=== PATIENT | male | born 1960 | race African-American/Black ===

== ENCOUNTER 2018-02-22 09:03 | Day surgery (SDC) | payer OTHER ==
[~2018-02-22 09:03] MED LIST: BUPIVACAINE MPF 0.5% 30 ML VIAL.; HYDROmorphone 2 MG/ML VIAL IV; LIDOCAINE 1% PF 2 ML VIAL. ID; LIDOCAINE 1% PF 30 ML VIAL.; MORPHINE SULFATE 2 MG/ML DISP.SYRIN. IV; ONDANSETRON PF 4 MG/2 ML VIAL. IV; PROCHLORPERAZINE 10 MG/2 ML VIAL. IV; PROPOFOL 20 ML IV; ROCURONIUM 50 MG/5 ML VIAL.; ceFAZolin 2GM PREMIX 2 GM/50 ML BAG IV; fentaNYL PF VIAL 100 MCG/2 ML VIAL; fentaNYL PF VIAL 100 MCG/2 ML VIAL IV
[2018-02-22 09:58] LABS: POC GLUCOSE 89 mg/dL (70-99)
[2018-02-22] MEDS: IV RINGERS,LACTATED 1000ML 1,000 ML IV (09:58)
[2018-02-22] MEDS ORDERED: MIDAZOLAM HCL/PF 2 MG/2 ML VIAL. (10:06)
[2018-02-22] MEDS ORDERED: ROPIVacaine 0.5% PF 30 ML VIAL. (10:07)
[2018-02-22] MEDS ORDERED: DEXAMETHASONE SOD PHOS 20 MG/5 ML VIAL. (11:24)
[2018-02-22] MEDS ORDERED: ONDANSETRON PF 4 MG/2 ML VIAL. (11:24)
[2018-02-22] MEDS ORDERED: DESFLURANE 61 TO 120 MINUTES IH (11:24)
[2018-02-22] MEDS: EPINEPHrine VIAL 30 MG/30 ML VIAL (11:29)
[2018-02-22 12:31] LABS: POC GLUCOSE 121 mg/dL (70-99)
[2018-02-22] MEDS: oxyCODONE/APAP 5/325 1 TAB TABLET PO (13:37)
== END 2018-02-22 14:16 | disposition home or self-care (01) ==
LOC: SURG 09:03
DX: M75.112 Incomplete rotator cuff tear or rupture of left shoulder, not specified as traumatic (principal); S43.402A Unspecified sprain of left shoulder joint, initial encounter; X58.XXXA Exposure to other specified factors, initial encounter; Y93.9 Activity, unspecified; Y92.89 Other specified places as the place of occurrence of the external cause; Y99.9 Unspecified external cause status; E66.9 Obesity, unspecified; Z68.31 Body mass index [BMI] 31.0-31.9, adult; I10 Essential (primary) hypertension; K21.9 Gastro-esophageal reflux disease without esophagitis; E11.9 Type 2 diabetes mellitus without complications; D64.9 Anemia, unspecified
CPT/HCPCS: 29827; 82962; C1713; J0171; J0690; J1100; J2250; J2405; J2704; J2795; J3010; J3490

== ENCOUNTER → 2019-03-02 | Day surgery (SDC) | payer OTHER ==
[~2019-03-02] MED LIST changes: +AZAT50TA PO; -BUPIVACAINE MPF 0.5% 30 ML VIAL.; +CYCL1DRO OP; +DOCU-109 PO; +ERGO500027 PO; +FENT1PAT21 TP; +FERR325T14 PO; +GABA600T7 PO; -HYDROmorphone 2 MG/ML VIAL IV; +INSU100C4 SQ; +IV RINGERS,LACTATED 1000ML 1,000 ML IV SCH; +LANS30CA PO; -LIDOCAINE 1% PF 2 ML VIAL. ID; -LIDOCAINE 1% PF 30 ML VIAL.; +LIDOCAINE 2% PF 5 ML VIAL. ONE; +LUBI24CA7 PO; +MELO15TA23 PO; -MORPHINE SULFATE 2 MG/ML DISP.SYRIN. IV; +ONDA8TAB12 PO; -ONDANSETRON PF 4 MG/2 ML VIAL. IV; +OXYC10TA PO; +OXYC1TAB15 PO; +OXYC80TA16 PO; +POLY17PO29 PO; +PRAM0.255 PO; +PREG150C PO; -PROCHLORPERAZINE 10 MG/2 ML VIAL. IV; -PROPOFOL 20 ML IV; +PROPOFOL 40 ML IV ONE; -ROCURONIUM 50 MG/5 ML VIAL.; +TOLT4CAP PO; +TRAZ-86 PO; +VENTOLIN HFA18 GM INH; -ceFAZolin 2GM PREMIX 2 GM/50 ML BAG IV; -fentaNYL PF VIAL 100 MCG/2 ML VIAL; -fentaNYL PF VIAL 100 MCG/2 ML VIAL IV
[2019-03-02 10:45] VITALS: BP 125/80
== END | disposition home or self-care (01) ==
LOC: SURG 09:11
PROVIDERS: ATTEND Internal Medicine Gastroenterology
DX: K57.30 Diverticulosis of large intestine without perforation or abscess without bleeding (principal); K64.0 First degree hemorrhoids; I10 Essential (primary) hypertension; F32.9 Major depressive disorder, single episode, unspecified; E11.9 Type 2 diabetes mellitus without complications; Z79.899 Other long term (current) drug therapy; M19.90 Unspecified osteoarthritis, unspecified site; Z98.890 Other specified postprocedural states; Z79.84 Long term (current) use of oral hypoglycemic drugs
CPT/HCPCS: 45378; J2001; J2704